=== PATIENT | male | born 1970 | race African-American/Black ===

== ENCOUNTER 2019-02-07 19:16 | Inpatient (IN) | payer OTHER ==
--- NOTE | 2019-02-07 21:28 | HP ---
CIWA Score Nausea/Vomitin Muscle Tremors: 4-Moderate,w/Arms Extend Anxiety: 4-Mod. Anxious/Guarded Agitation: 4-Moderately Restless Paroxysmal Sweats: No Perspiration Orientation: 3-Disoriented Date>2 days Tacttile Disturbances: 0-None Auditory Disturbances: 0-None Visual Disturbances: 0-None Headache: 0-None Present CIWA-Ar Total Score: 18 - Admission Criteria OASAS Guidelines: Admission for Medically Managed Detox: Requires at least one of the followin. CIWA greater than 12 2. Seizures within the past 24 hours 3. Delirium tremens within the past 24 hours 4. Hallucinations within the past 24 hours 5. Acute intervention needed for co occurring medical disorder 6. Acute intervention needed for co occurring psychiatric disorder 7. Severe withdrawal that cannot be handled at a lower level of care (continued vomiting, continued diarrhea, abnormal vital signs) requiring intravenous medication and/or fluids 8. Patient presents the following: CIWA greater than 12, Acute intervention needed for co-occurring med or psych disorder Admission Criteria Met: Admission criteria met Admission ROS [facility] Chief Complaint: c/o worsening withdrawal sx's. seeking detox txment Allergies/Adverse Reactions: Allergies Allergy/AdvReac Type Severity Reaction Status Date / Time haloperidol [From Haldol] Allergy Verified 02/07/19 20:13 tomato Allergy Verified 02/07/19 20:13 History of Present Illness: 48 Y.O. MALE WITH HX/O ALCOHOLISM HERE FOR DETOX . PRESENTS WITH C/O WORSENING WITHDRAWAL SX'S. CIWA 18. THIS IS CLIENTS FIRST ADMISSION HERE. DENIES HX/O SEIZURES, BLACKOUTS, SI/HI/AVH. REPORTS LAST DETOX "A WHILE AGO" DOES NOT REMEMBER. DENIES ANY SIGNIFICANT PERIOD OF CLEAN TIME. PMHX- RIGHT LEG "NERVE DAMAGE" PSYCH- DEPRESSION, BIPOLAR Exam Limitations: No Limitations - Ebola screening Have you traveled outside of the country in the last 21 days: No Have you had contact with anyone from an Ebola affected area: No Do you have a fever: No - Review of Systems Constitutional: Chills, Loss of Appetite, Malaise, Night Sweats, Changes in sleep, Unintentional Wgt. Loss EENT: reports: No Symptoms Reported Respiratory: reports: No Symptoms reported Cardiac: reports: No Symptoms Reported GI: reports: Diarrhea, Nausea, Poor Appetite, Poor Fluid Intake, Vomiting, Abdominal cramping : reports: No Symptoms Reported Musculoskeletal: reports: Back Pain Integumentary: reports: No Symptoms Reported Neuro: reports: Numbness (LEFT HAND) Endocrine: reports: No Symptoms Reported Hematology: reports: No Symptoms Reported Psychiatric: reports: Anxious Other Systems: Reviewed and Negative Patient History - Patient Medical History Hx Anemia: No Hx Asthma: No Hx Chronic Obstructive Pulmonary Disease (COPD): No Hx Cancer: No Hx Cardiac Disorders: No Hx Congestive Heart Failure: No Hx Hypertension: No Hx Hypercholesterolemia: No Hx Pacemaker: No HX Cerebrovascular Accident: No Hx Seizures: No Hx Dementia: No Hx Diabetes: No Hx Gastrointestinal Disorders: No Hx Liver Disease: No Hx Renal Disease (ESRD): No Hx Thyroid Disease: No Hx Human Immunodeficiency Virus (HIV): No Hx Hepatitis C: No Hx Depression: Yes Hx Suicide Attempt: No Hx Bipolar Disorder: Yes Hx Schizophrenia: No - Patient Surgical History Past Surgical History: Yes Hx Orthopedic Surgery: Yes Anesthesia Reaction: No - PPD History Previous Implant?: Yes Documented Results: Negative w/o proof Implanted On Prior [facility] Admission?: No PPD to be Administered?: Yes - Smoking Cessation Smoking history: Current every day smoker Have you smoked in the past 12 months: Yes Aproximately how many cigarettes per day: 20 Cigars Per Day: 0 Hx Chewing Tobacco Use: No Initiated information on smoking cessation: Yes 'Breaking Loose' booklet given: 02/07/19 - Substance & Tx. History Hx Alcohol Use: Yes Hx Substance Use: Yes Substance Use Type: Alcohol Hx Substance Use Treatment: Yes (DOES NOT RECALL) - Substances abused Alcohol Substance route: Oral Frequency: Daily Amount used: 2 1/2 PINT VODKA 6 PACK BEER Age of first use: 13 Date of last use: 02/07/19 Cocaine Substance route: Smoking Frequency: Daily Amount used: $200 Age of first use: 18 Date of last use: 02/07/19 Family Disease History - Family Disease History Family History: Unable to Obtain Admission Physical Exam BHS - Vital Signs Vital Signs: Vital Signs - 24 hr 02/07/19 20:10 Temperature 98.6 F Pulse Rate 79 Respiratory 18 Rate Blood Pressure 122/74 - Physical General Appearance: Yes: Moderate Distress, Tremorous, Irritable, Anxious, Other (RESTLESS) HEENTM: Yes: EOMI, Normocephalic, Normal Voice, ROMULO, Pharynx Normal Respiratory: Yes: Chest Non-Tender, Lungs Clear, Normal Breath Sounds, No Respiratory Distress, No Accessory Muscle Use Neck: Yes: No masses,lesions,Nodules, Supple, Trachea in good position Breast: Yes: Breast Exam Deferred Cardiology: Yes: Regular Rhythm, Regular Rate, S1, S2 Abdominal: Yes: Normal Bowel Sounds, Non Tender, Soft Genitourinary: Yes: Within Normal Limits (NO C/O) Back: Yes: Normal Inspection Musculoskeletal: Yes: Other (RLE WEAKNESS LUE WEAKNESS) Extremities: Yes: Normal Capillary Refill, Non-Tender, Tremors (FELT), Other ( RLE BRACE 2/2 TO WEAKNESS) Neurological: Yes: Alert, Motor Strength 5/5, Numbness (LUE), Disoriented (TO DATE), Depressed Affect Integumentary: Yes: Dry (FLAKY), Warm Lymphatic: Yes: Within Normal Limits - Diagnostic (1) Alcohol dependence with uncomplicated withdrawal Current Visit: Yes Status: Acute (2) Cocaine abuse, uncomplicated Current Visit: Yes Status: Acute (3) Nicotine dependence Current Visit: Yes Status: Chronic Qualifiers: Nicotine product type: cigarettes Substance use status: uncomplicated Qualified Code(s): F17.210 - Nicotine dependence, cigarettes, uncomplicated (4) Substance induced mood disorder Current Visit: Yes Status: Chronic (5) Weakness of right lower extremity Current Visit: Yes Status: Chronic (6) Braces as ambulation aid Current Visit: Yes Status: Chronic (7) Crutches as ambulation aid Current Visit: Yes Status: Chronic (8) Weakness of left upper extremity Current Visit: Yes Status: Chronic Cleared for Admission [facility] - Detox or Rehab [facility] Level of Care: Medically Managed Detox Regimen/Protocol: Librium Claeared for Rehab Admission: No Inpatient Rehab Admission - Rehab Decision to Admit Inpatient rehab admission?: No
[2019-02-07] MEDS ORDERED: ONDANSETRON *ODT* 4 MG TABLET SL PRN (21:33)
[2019-02-07] MEDS ORDERED: ACETAMINOPHEN 325 MG TABLET (FP) PO PRN ×2 (21:33)
[2019-02-07] MEDS ORDERED: hydrOXYzine PAMOATE 25 MG CAPSULE (FP) PO PRN (21:33)
[2019-02-07] MEDS ORDERED: DICYCLOMINE HCL 10 MG CAPSULE PO PRN (21:33)
[2019-02-07] MEDS ORDERED: chlordiazePOXIDE HCL 25 MG CAPSULE PO PRN (21:33)
[2019-02-07] MEDS ORDERED: MAGNESIUM HYDROX 2400MG/30ML ORAL SUSPENSION 30 ML CUP PO PRN (21:33)
[2019-02-07] MEDS ORDERED: NICOTINE POLACRILEX 2 MG GUM BUC PRN (21:33)
[2019-02-07] MEDS ORDERED: MENTHOL/PHENOL 1 EACH UD MM PRN (21:33)
[2019-02-07] MEDS ORDERED: P-EPHED 60MG/TRIPROLIDI 2.5MG TABLET PO PRN (21:33)
[2019-02-07] MEDS ORDERED: guaiFENesin 200 MG/10 ML 10 ML UNIT-DOSE CUPS PO PRN (21:33)
[2019-02-07] MEDS ORDERED: MAGNESIUM CITRATE 300 ML BOTTLE PO PRN (21:33)
[2019-02-07] MEDS ORDERED: BACLOFEN 10 MG TABLET (FP) PO PRN (21:33)
[2019-02-07] MEDS ORDERED: BISMUTH SUBSALICYLATE 524 MG/30 ML UD PO PRN (21:33)
[2019-02-07] MEDS ORDERED: MAG HYDROX/AL HYDROX/SIMETH 30 ML UNIT-DOSE CUP PO PRN (21:33)
[2019-02-07] MEDS ORDERED: METHOCARBAMOL 500 MG TABLET PO PRN (21:33)
[2019-02-07] MEDS ORDERED: MELATONIN 5 MG TABLETS PO PRN (21:33)
[2019-02-07] MEDS ORDERED: IBUPROFEN 400 MG TABLET (FP) PO PRN (21:33)
[2019-02-08] MEDS: chlordiazePOXIDE HCL 25 MG CAPSULE PO SCH ×5 (00:18→22:35)
[2019-02-08] MEDS: THIAMINE HCL 100 MG TABLET (FP) PO SCH ×2 (01:18→22:35)
--- NOTE | 2019-02-08 10:08 | EKG ---
Test Reason : Blood Pressure : / mmHG Vent. Rate : 078 BPM Atrial Rate : 078 BPM P-R Int : 128 ms QRS Dur : 104 ms QT Int : 404 ms P-R-T Axes : 076 -53 023 degrees QTc Int : 460 ms NORMAL SINUS RHYTHM LEFT ANTERIOR FASCICULAR BLOCK MINIMAL VOLTAGE CRITERIA FOR LVH, MAY BE NORMAL VARIANT ABNORMAL ECG NO PREVIOUS ECGS AVAILABLE Confirmed by LISA CABRERA, KEILY ([id number]) on 02/08/2019 10:08:27 AM Referred By: MARICHUY KIM Confirmed By:KEILY GONZALEZ MD
[2019-02-08] MEDS: PRENATAL VITAMINS W/ FOLIC ACID TABLET (FP) PO SCH (10:48)
[2019-02-08] MEDS: NICOTINE 21 MG/24 HOURS TOPICAL PATCH TD SCH (10:51)
[2019-02-08 12:27] LABS: HEMATOCRIT 40.7 % (35.4-49); HEMOGLOBIN 13.5 GM/dL (11.7-16.9); MCH 29.8 pg (25.7-33.7); MCHC 33.1 g/dl (32.0-35.9); MEAN CELL VOLUME 90.1 fl (80-96); MEAN PLT VOLUME 7.7 fl (7.5-11.1); PLATELET COUNT 253 K/MM3 (134-434); RBC 4.52 M/mm3 (4.00-5.60); RDW 14.1 % (11.9-15.9); WHITE BLOOD COUNT 3.9 K/mm3 (4.0-10.0)
[2019-02-08 12:29] LABS: ALK PHOS 52 U/L (45-117); ANION GAP 6 MMOL/L (8-16); BILIRUBIN,TOTAL 0.3 mg/dL (0.2-1); BLOOD UREA NITROGEN 11 mg/dL (7-18); CALCIUM 7.9 mg/dL (8.5-10.1); CHLORIDE 110 mmol/L (98-107); CO2 28 mmol/L (21-32); CREATININE 0.8 mg/dL (0.55-1.3); GLUCOSE,RANDOM 126 mg/dL (74-106); POTASSIUM 3.8 mmol/L (3.5-5.1); SGOT/AST 12 U/L (15-37); SGPT/ALT 20 U/L (13-61); SODIUM 144 mmol/L (136-145); TOT PROT 5.8 g/dl (6.4-8.2)
--- NOTE | 2019-02-08 16:55 | PN ---
S CIWA - CIWA Score Nausea/Vomitin Muscle Tremors: 3 Anxiety: 3 Agitation: 0-Normal Activity Paroxysmal Sweats: No Perspiration Orientation: 0-Oriented Tacttile Disturbances: 0-None Auditory Disturbances: 2-Mild Harshness/Frighten Visual Disturbances: 2-Mild Sensitivity Headache: 0-None Present CIWA-Ar Total Score: 13 BHS Progress Note (SOAP) Subjective: Anxious, Body Aches, Interrupted Sleep, Diarrhea, Vomiting. Objective: PATIENT A & O X 3. IN NO ACUTE DISTRESS. 02/08/19 16:53 Vital Signs Temperature 98.6 F 02/08/19 14:23 Pulse Rate 72 02/08/19 14:23 Respiratory Rate 18 02/08/19 14:23 Blood Pressure 134/74 02/08/19 14:23 O2 Sat by Pulse Oximetry (%) Laboratory Tests 02/08/19 02/08/19 07:00 07:00 WBC 3.9 L RBC 4.52 Hgb 13.5 Hct 40.7 MCV 90.1 MCH 29.8 MCHC 33.1 RDW 14.1 Plt Count 253 MPV 7.7 Sodium 144 Potassium 3.8 Chloride 110 H Carbon Dioxide 28 Anion Gap 6 L BUN 11 Creatinine 0.8 Creat Clearance w eGFR 103.18 Random Glucose 126 H Calcium 7.9 L Total Bilirubin 0.3 AST 12 L ALT 20 Alkaline Phosphatase 52 Total Protein 5.8 L Albumin 3.0 L LABS NOTED. Assessment: 02/08/19 16:53 WITHDRAWAL SYMPTOMS. HYPOCALCEMIA. 02/08/19 16:54 Plan: CONTINUE DETOX. INCREASE DAILY PO FLUID INTAKE. OSCAL, 500 MG PO BID FOR HYPOCALCEMIA.
--- NOTE | 2019-02-08 18:54 | CONSULT ---
[facility] Psychiatric Consult - Data Date of interview: 02/08/19 Admission source: [facility] Identifying data: Approached at bedside, earlier during the day, for the psychiatric evaluation. Mr Rand declined.
[2019-02-08] MEDS: CALCIUM 500MG/VIT-D 200 UNITS COMBO TABLET (FP) PO SCH (22:35)
[2019-02-09] MEDS: chlordiazePOXIDE HCL 25 MG CAPSULE PO SCH ×3 (06:20→18:32)
[2019-02-09] MEDS: CALCIUM 500MG/VIT-D 200 UNITS COMBO TABLET (FP) PO SCH ×2 (10:41→22:50)
[2019-02-09] MEDS: PRENATAL VITAMINS W/ FOLIC ACID TABLET (FP) PO SCH (10:41)
[2019-02-09] MEDS: NICOTINE 21 MG/24 HOURS TOPICAL PATCH TD SCH (10:47)
--- NOTE | 2019-02-09 16:09 | PN ---
S CIWA - CIWA Score Nausea/Vomitin Muscle Tremors: None Anxiety: 4-Mod. Anxious/Guarded Agitation: 0-Normal Activity Paroxysmal Sweats: No Perspiration Orientation: 0-Oriented Tacttile Disturbances: 2-Mild Itch/Numbness/Burn Auditory Disturbances: 1-Very Mild Visual Disturbances: 2-Mild Sensitivity Headache: 0-None Present CIWA-Ar Total Score: 11 BHS Progress Note (SOAP) Subjective: Anxious, Body Aches, Nausea, Interrupted Sleep, Diarrhea. Objective: PATIENT A & O X 3, OBSERVED AMBULATING ON UNIT. IN NO ACUTE DISTRESS. 02/09/19 16:08 Vital Signs Temperature 96.4 F L 02/09/19 14:12 Pulse Rate 93 H 02/09/19 14:12 Respiratory Rate 20 02/09/19 14:12 Blood Pressure 109/67 02/09/19 14:12 O2 Sat by Pulse Oximetry (%) Laboratory Tests 02/08/19 02/08/19 02/08/19 07:00 07:00 07:00 WBC 3.9 L RBC 4.52 Hgb 13.5 Hct 40.7 MCV 90.1 MCH 29.8 MCHC 33.1 RDW 14.1 Plt Count 253 MPV 7.7 Sodium 144 Potassium 3.8 Chloride 110 H Carbon Dioxide 28 Anion Gap 6 L BUN 11 Creatinine 0.8 Creat Clearance w eGFR 103.18 Random Glucose 126 H Calcium 7.9 L Total Bilirubin 0.3 AST 12 L ALT 20 Alkaline Phosphatase 52 Total Protein 5.8 L Albumin 3.0 L RPR Titer Nonreactive LABS NOTED. Assessment: 02/09/19 16:09 WITHDRAWAL SYMPTOMS. Plan: CONTINUE DETOX. INCREASE DAILY PO FLUID INTAKE. PRN PEPTO-BISMOL PO FOR DIARRHEA. PRN ZOFRAN SL FOR NAUSEA.
[2019-02-09] MEDS: chlordiazePOXIDE HCL 10 MG CAPSULE PO SCH (22:50)
[2019-02-09] MEDS: THIAMINE HCL 100 MG TABLET (FP) PO SCH (22:50)
[2019-02-09] MEDS ORDERED: chlordiazePOXIDE HCL 10 MG CAPSULE PO PRN (23:00)
[2019-02-10] MEDS: chlordiazePOXIDE HCL 10 MG CAPSULE PO SCH ×2 (06:41→10:23)
[2019-02-10 09:19] VITALS: BP 93/58; PULSE 71; TEMP 96.9
[2019-02-10] MEDS: CALCIUM 500MG/VIT-D 200 UNITS COMBO TABLET (FP) PO SCH (10:20)
[2019-02-10] MEDS: PRENATAL VITAMINS W/ FOLIC ACID TABLET (FP) PO SCH (10:20)
[2019-02-10] MEDS: NICOTINE 21 MG/24 HOURS TOPICAL PATCH TD SCH (10:24)
--- NOTE | 2019-02-10 18:29 | PN ---
BHS Progress Note (SOAP) Subjective: Patient Reports That Current Withdrawal Symptoms are Minimal and That He feels Well Overall. Objective: PATIENT A & O X 3, OBSERVED AMBULATING ON UNIT. IN NO ACUTE DISTRESS. 02/10/19 18:26 Vital Signs Temperature 96.9 F L 02/10/19 09:18 Pulse Rate 71 02/10/19 09:18 Respiratory Rate 18 02/10/19 09:18 Blood Pressure 93/58 L 02/10/19 09:18 O2 Sat by Pulse Oximetry (%) Laboratory Tests 02/08/19 02/08/19 02/08/19 07:00 07:00 07:00 WBC 3.9 L RBC 4.52 Hgb 13.5 Hct 40.7 MCV 90.1 MCH 29.8 MCHC 33.1 RDW 14.1 Plt Count 253 MPV 7.7 Sodium 144 Potassium 3.8 Chloride 110 H Carbon Dioxide 28 Anion Gap 6 L BUN 11 Creatinine 0.8 Creat Clearance w eGFR 103.18 Random Glucose 126 H Calcium 7.9 L Total Bilirubin 0.3 AST 12 L ALT 20 Alkaline Phosphatase 52 Total Protein 5.8 L Albumin 3.0 L RPR Titer Nonreactive LABS NOTED. Assessment: 02/10/19 18:27 COMPLETION OF DETOX REGIMEN. 02/10/19 18:28 Plan: SINCE PATIENT REPORTS THAT CURRENT WITHDRAWAL / DETOX SYMPTOMS ARE MINIMAL IN DEGREE AND THAT HE FEELS WELL OVERALL, AT PATIENT'S REQUEST, HE WAS GRANTED AN EARLY DISCHARGE FROM DETOX UNIT TODAY SO THAT HE MAY PROCEED ON TO AFTERCARE PLAN - [facility] ([place], [place]).
--- NOTE | 2019-02-10 18:32 | DS ---
[facility] Detox Discharge Summary Admission Date: 02/07/19 Discharge Date: 02/10/19 - History Present History: Alcohol Dependence, Cocaine Dependence Additional Comments: PATIENT REPORTS THAT CURRENT WITHDRAWAL / DETOX SYMPTOMS MINIMAL IN DEGREE AT THIS TIME AND HE REPORTS THAT HE FEELS WELL OVERALL AT TIME OF DISCHARGE FROM DETOX UNIT. PATIENT GOING TO [facility] ([place], [place]) FOR AFTERCARE. PATIENT WAS DISCHARGED FROM DETOX UNIT IN STABLE MEDICAL CONDITION. Pertinent Past History: History of Nerve Damage To Right Leg, Depression, Hypocalcemia, Bipolar Disorder , Nicotine Dependence, History of Weakness Of Right Lower Extremity, Use of Braces and Crutches As Ambulatory Aids, History Of Weakness Of right Upper Extremity. - Physical Exam Results Vital Signs: Vital Signs Temperature 96.9 F L 02/10/19 09:18 Pulse Rate 71 02/10/19 09:18 Respiratory Rate 18 02/10/19 09:18 Blood Pressure 93/58 L 02/10/19 09:18 O2 Sat by Pulse Oximetry (%) Pertinent Admission Physical Exam Findings: WITHDRAWAL SYMPTOMS. Laboratory Tests 02/08/19 02/08/19 02/08/19 07:00 07:00 07:00 WBC 3.9 L RBC 4.52 Hgb 13.5 Hct 40.7 MCV 90.1 MCH 29.8 MCHC 33.1 RDW 14.1 Plt Count 253 MPV 7.7 Sodium 144 Potassium 3.8 Chloride 110 H Carbon Dioxide 28 Anion Gap 6 L BUN 11 Creatinine 0.8 Creat Clearance w eGFR 103.18 Random Glucose 126 H Calcium 7.9 L Total Bilirubin 0.3 AST 12 L ALT 20 Alkaline Phosphatase 52 Total Protein 5.8 L Albumin 3.0 L RPR Titer Nonreactive LABS NOTED. - Treatment Hospital Course: Detox Protocol Followed, Detoxed Safely, Responded well, Discharged Condition Good, Rehab Referral Accepted Patient has Accepted a Rehab Referral to: [facility] ([place], [place]). - Medication Discharge Medications: Ambulatory Orders Fluphenazine HCl [Prolixin -] 5 mg PO BID 02/07/19 Quetiapine Fumarate [Seroquel] 100 mg PO HS 02/07/19 - Diagnosis (1) Alcohol dependence with uncomplicated withdrawal Status: Acute (2) Cocaine abuse, uncomplicated Status: Acute (3) Hypocalcemia Status: Acute (4) Braces as ambulation aid Status: Chronic (5) Crutches as ambulation aid Status: Chronic (6) Nicotine dependence Status: Chronic Qualifiers: Nicotine product type: cigarettes Substance use status: uncomplicated Qualified Code(s): F17.210 - Nicotine dependence, cigarettes, uncomplicated (7) Substance induced mood disorder Status: Chronic (8) Weakness of left upper extremity Status: Chronic (9) Weakness of right lower extremity Status: Chronic - AMA Did Patient Leave Against Medical Advice: No
[2019-02-10] MEDS ORDERED: chlordiazePOXIDE HCL 10 MG CAPSULE PO SCH (23:00)
== END 2019-02-10 11:45 | disposition other institution (70) | DRG 774 ==
LOC: YASAS 19:16 → Y3N 23:16
PROVIDERS: ADMIT Surgery; ATTEND Surgery
PROC: HZ2ZZZZ Detoxification Services for Substance Abuse Treatment (ICD-10-PCS; principal; 2019-02-07)
DX: F10.230 Alcohol dependence with withdrawal, uncomplicated (principal); F14.20 Cocaine dependence, uncomplicated; F17.210 Nicotine dependence, cigarettes, uncomplicated; F19.24 Other psychoactive substance dependence with psychoactive substance-induced mood disorder; E83.51 Hypocalcemia; R29.898 Other symptoms and signs involving the musculoskeletal system; Z97.8 Presence of other specified devices; Z91.19 Patient's noncompliance with other medical treatment and regimen
CPT/HCPCS: 36415; 80053; 85027; 86593; 93005; 93010; Q0162

== ENCOUNTER 2019-04-14 14:08 | Inpatient (IN) | payer OTHER ==
[2019-04-14 19:15] VITALS: BMI 26.1
--- NOTE | 2019-04-14 20:43 | HP ---
CIWA Score Nausea/Vomitin-Mild Nausea/No Vomiting Muscle Tremors: None Anxiety: 4-Mod. Anxious/Guarded Agitation: 4-Moderately Restless Paroxysmal Sweats: No Perspiration Orientation: 2-Disoriented Date<2 days Tacttile Disturbances: 0-None Auditory Disturbances: 0-None Visual Disturbances: 0-None Headache: 1-Very Mild CIWA-Ar Total Score: 12 - Admission Criteria OASAS Guidelines: Admission for Medically Managed Detox: Requires at least one of the followin. CIWA greater than 12 2. Seizures within the past 24 hours 3. Delirium tremens within the past 24 hours 4. Hallucinations within the past 24 hours 5. Acute intervention needed for co occurring medical disorder 6. Acute intervention needed for co occurring psychiatric disorder 7. Severe withdrawal that cannot be handled at a lower level of care (continued vomiting, continued diarrhea, abnormal vital signs) requiring intravenous medication and/or fluids 8. Patient presents the following: CIWA greater than 12 Admission Criteria Met: Admission criteria met Admission ROS [facility] Chief Complaint: SEEKING DETOX FOR C/O OF WITHDRAWAL SX'S. Allergies/Adverse Reactions: Allergies Allergy/AdvReac Type Severity Reaction Status Date / Time haloperidol [From Haldol] Allergy Verified 02/07/19 20:13 mayonnaise Allergy Hives Verified 04/14/19 18:58 tomato Allergy Verified 02/07/19 20:13 History of Present Illness: 49 Y.O. MALE WITH HX/O ALCOHOLISM HERE FOR DETOX . PRESENTS WITH C/O WORSENING WITHDRAWAL SX'S. CIWA 12. THIS IS CLIENTS 2ND ADMISSION HERE. DENIES HX/O SEIZURES, SI/HI/AVH, +BLACKOUTS. REPORTS LONGEST CLEAN TIME PAST 60 DAYS. DOMICILED, DISABLED. DENIES LEGALS PMHX- RIGHT LEG "NERVE DAMAGE" PSYCH- DEPRESSION, BIPOLAR Exam Limitations: Physical Impairment (RLE NERVE DAMAGE AMBULATES WITH CRUTCHES ) - Ebola screening Have you traveled outside of the country in the last 21 days: No (N) Have you had contact with anyone from an Ebola affected area: No Do you have a fever: No - Review of Systems Constitutional: Night Sweats, Changes in sleep EENT: reports: Nose Congestion Respiratory: reports: No Symptoms reported Cardiac: reports: No Symptoms Reported GI: reports: Nausea, Poor Fluid Intake : reports: Urgency Musculoskeletal: reports: Joint Pain, Other (LLE WEAKNESS) Integumentary: reports: No Symptoms Reported Neuro: reports: No Symptoms reported Endocrine: reports: No Symptoms Reported Hematology: reports: No Symptoms Reported Psychiatric: reports: Orientated x3, Agitated (IRRITABLE), Anxious Other Systems: Reviewed and Negative Patient History - Patient Medical History Hx Anemia: No Hx Asthma: No Hx Chronic Obstructive Pulmonary Disease (COPD): No Hx Cancer: No Hx Cardiac Disorders: No Hx Congestive Heart Failure: No Hx Hypertension: No Hx Hypercholesterolemia: No Hx Pacemaker: No HX Cerebrovascular Accident: No Hx Seizures: No Hx Dementia: No Hx Diabetes: No Hx Gastrointestinal Disorders: No Hx Liver Disease: No Hx Genitourinary Disorders: No Hx Sexually Transmitted Disorders: No Hx Renal Disease (ESRD): No Hx Thyroid Disease: No Hx Human Immunodeficiency Virus (HIV): No Hx Hepatitis C: No Hx Depression: Yes Hx Suicide Attempt: No Hx Bipolar Disorder: Yes Hx Schizophrenia: Yes Other Medical History: RLE "NERVE DAMAGE" - Patient Surgical History Past Surgical History: Yes Hx Neurologic Surgery: No Hx Cataract Extraction: No Hx Cardiac Surgery: No Hx Lung Surgery: No Hx Breast Surgery: No Hx Breast Biopsy: No Hx Abdominal Surgery: No Hx Appendectomy: No Hx Cholecystectomy: No Hx Genitourinary Surgery: No Hx Section: No Hx Orthopedic Surgery: Yes Anesthesia Reaction: No - PPD History Previous Implant?: Yes Documented Results: Negative w/proof Implanted On Prior [facility] Admission?: Yes Date: 02/11/19 Results: 0MM PPD to be Administered?: No - Smoking Cessation Smoking history: Current every day smoker Have you smoked in the past 12 months: Yes Aproximately how many cigarettes per day: 3 Cigars Per Day: 0 Hx Chewing Tobacco Use: No Initiated information on smoking cessation: Yes 'Breaking Loose' booklet given: 04/14/19 - Substance & Tx. History Hx Alcohol Use: Yes Hx Substance Use: Yes Substance Use Type: Alcohol, Cocaine Hx Substance Use Treatment: Yes ([facility]) - Substances abused Alcohol Substance route: Oral Frequency: Daily Amount used: 2 1/2 PINT VODKA 6 PACK BEER Age of first use: 13 Date of last use: 04/14/19 Cocaine Substance route: Smoking Frequency: Daily Amount used: $200 Age of first use: 18 Date of last use: 04/14/19 PCP Substance route: Smoking Frequency: Daily Amount used: 2 of 20 dollars Age of first use: 14 Date of last use: 04/14/19 Marijuana/Hashish Substance route: Smoking Frequency: Daily Amount used: 2 bags Age of first use: 49 Date of last use: 04/14/19 Family Disease History - Family Disease History Family Disease History: Other: Mother (ALCOHOLISM), Brother (ALCOHOLISM) Admission Physical Exam [facility] - Vital Signs Vital Signs: Vital Signs - 24 hr 04/14/19 18:56 Temperature 98.6 F Pulse Rate 106 H Respiratory 16 Rate Blood Pressure 130/78 - Physical General Appearance: Yes: Mild Distress, Anxious HEENTM: Yes: EOMI, Normocephalic, Normal Voice, ROMULO, Pharynx Normal, Nasal Congestion Respiratory: Yes: Chest Non-Tender, Lungs Clear, Normal Breath Sounds, No Respiratory Distress, No Accessory Muscle Use Neck: Yes: No masses,lesions,Nodules, Supple, Trachea in good position Breast: Yes: Breast Exam Deferred Cardiology: Yes: Regular Rhythm, S1, S2, Tachycardia Abdominal: Yes: Non Tender, Soft, Increased Bowel Sounds, Protuberent Genitourinary: Yes: Uregency (c/o) Back: Yes: Within Normal Limits Musculoskeletal: Yes: full range of Motion Extremities: Yes: Normal Capillary Refill, Normal Range of Motion (DECREASE ROM TO RLE), Non-Tender Neurological: Yes: Fully Oriented, Alert, Motor Strength 5/5 (rle weakness), Depressed Affect Integumentary: Yes: Dry, Warm Lymphatic: Yes: Within Normal Limits - Diagnostic (1) Alcohol dependence with uncomplicated withdrawal Current Visit: Yes Status: Acute (2) Cocaine abuse, uncomplicated Current Visit: Yes Status: Acute (3) Braces as ambulation aid Current Visit: Yes Status: Chronic (4) Crutches as ambulation aid Current Visit: Yes Status: Chronic (5) Nicotine dependence Current Visit: Yes Status: Chronic Qualifiers: Nicotine product type: cigarettes Substance use status: uncomplicated Qualified Code(s): F17.210 - Nicotine dependence, cigarettes, uncomplicated (6) Substance induced mood disorder Current Visit: Yes Status: Suspected (7) Weakness of right lower extremity Current Visit: Yes Status: Chronic Cleared for Admission [facility] - Detox or Rehab [facility] Level of Care: Medically Managed Detox Regimen/Protocol: Librium Claeared for Rehab Admission: No Breathalyzer - Breathalyzer Breathalyzer: 0.090 Urine Drug Screen - Test Device Lot number: [id number] Expiration date: 01/05/21 - Control Is test valid?: Yes - Results Drug screen NEGATIVE: No Urine drug screen results: CHOLO-Cocaine Inpatient Rehab Admission - Rehab Decision to Admit Inpatient rehab admission?: No
[2019-04-14] MEDS ORDERED: BISMUTH SUBSALICYLATE 524 MG/30 ML UD PO PRN (20:47)
[2019-04-14] MEDS ORDERED: ONDANSETRON *ODT* 4 MG TABLET SL PRN (20:47)
[2019-04-14] MEDS ORDERED: MELATONIN 5 MG TABLETS PO PRN (20:47)
[2019-04-14] MEDS ORDERED: P-EPHED 60MG/TRIPROLIDI 2.5MG TABLET PO PRN (20:47)
[2019-04-14] MEDS ORDERED: DICYCLOMINE HCL 10 MG CAPSULE PO PRN (20:47)
[2019-04-14] MEDS ORDERED: guaiFENesin 200 MG/10 ML 10 ML UNIT-DOSE CUPS PO PRN (20:47)
[2019-04-14] MEDS ORDERED: ACETAMINOPHEN 325 MG TABLET (FP) PO PRN ×2 (20:47)
[2019-04-14] MEDS ORDERED: NICOTINE POLACRILEX 2 MG GUM BUC PRN (20:47)
[2019-04-14] MEDS ORDERED: METHOCARBAMOL 500 MG TABLET PO PRN (20:47)
[2019-04-14] MEDS ORDERED: MAGNESIUM HYDROX 2400MG/30ML ORAL SUSPENSION 30 ML CUP PO PRN (20:47)
[2019-04-14] MEDS ORDERED: MAG HYDROX/AL HYDROX/SIMETH 30 ML UNIT-DOSE CUP PO PRN (20:47)
[2019-04-14] MEDS ORDERED: MAGNESIUM CITRATE 300 ML BOTTLE PO PRN (20:47)
[2019-04-14] MEDS ORDERED: MENTHOL/PHENOL 1 EACH UD MM PRN (20:47)
[2019-04-14] MEDS ORDERED: hydrOXYzine PAMOATE 25 MG CAPSULE (FP) PO PRN (20:47)
[2019-04-14] MEDS ORDERED: IBUPROFEN 400 MG TABLET (FP) PO PRN (20:47)
[2019-04-14] MEDS ORDERED: chlordiazePOXIDE HCL 25 MG CAPSULE PO PRN (20:47)
[2019-04-14] MEDS: THIAMINE HCL 100 MG TABLET (FP) PO SCH (22:27)
[2019-04-14] MEDS: chlordiazePOXIDE HCL 25 MG CAPSULE PO SCH (22:27)
[2019-04-15] MEDS: chlordiazePOXIDE HCL 25 MG CAPSULE PO SCH ×4 (07:03→22:21)
--- NOTE | 2019-04-15 10:07 | PN ---
S CIWA - CIWA Score Nausea/Vomitin-No Nausea/No Vomiting Muscle Tremors: 2 Anxiety: 2 Agitation: 2 Paroxysmal Sweats: 3 Orientation: 0-Oriented Tacttile Disturbances: 0-None Auditory Disturbances: 0-None Visual Disturbances: 0-None Headache: 1-Very Mild CIWA-Ar Total Score: 10 S Progress Note (SOAP) Subjective: c/o sweats, mild headache, anxiety, and mild shakes. Objective: 04/15/19 10:06 Vital Signs 04/15/19 04/15/19 04/15/19 03:30 06:07 09:25 Temperature 97.5 F L 97.4 F L Pulse Rate 93 H 93 H Respiratory 18 18 20 Rate Blood Pressure 111/67 106/57 L Labs pending. Assessment: 04/15/19 10:07 AOX3, in no respiratory distress, full rom, ambulating in the unit. Withdrawal symptoms. Plan: continue detox increase fluids.
[2019-04-15] MEDS: NICOTINE 14 MG/24 HOURS TOPICAL PATCH TD SCH (10:41)
[2019-04-15] MEDS: PRENATAL VITAMINS W/ FOLIC ACID TABLET (FP) PO SCH (10:42)
[2019-04-15 11:49] LABS: PH,URINE 6.5 (5.0-8.0); URINE APPEARANCE CLEAR; URINE BILIRUBIN NEGATIVE (NEGATIVE); URINE COLOR YELLOW; URINE GLUCOSE (UA) NEGATIVE (NEGATIVE); URINE KETONE NEGATIVE (NEGATIVE); URINE LEUK ESTERASE NEGATIVE (NEGATIVE); URINE NITRITE NEGATIVE (NEGATIVE); URINE PROTEIN NEGATIVE (NEGATIVE); URINE UROBILINOGEN 0.2 mg/dL (0.2-1.0)
--- NOTE | 2019-04-15 12:46 | CONSULT ---
[facility] Psychiatric Consult - Data Date of interview: 04/15/19 Admission source: [facility] Identifying data: THREE visits at bedside. Patient was approached by this marine underwriter for psychiatric evaluation (as requested by the medical team). Mr Rand steadfastly refused. Nursing staff is made aware.
[2019-04-15] MEDS: THIAMINE HCL 100 MG TABLET (FP) PO SCH (22:21)
[2019-04-16] MEDS: chlordiazePOXIDE HCL 25 MG CAPSULE PO SCH ×3 (06:15→17:02)
[2019-04-16] MEDS: NICOTINE 14 MG/24 HOURS TOPICAL PATCH TD SCH (11:02)
[2019-04-16] MEDS: PRENATAL VITAMINS W/ FOLIC ACID TABLET (FP) PO SCH (11:02)
--- NOTE | 2019-04-16 11:31 | PN ---
[facility] CIWA - CIWA Score Nausea/Vomitin-No Nausea/No Vomiting Muscle Tremors: 2 Anxiety: 2 Agitation: 2 Paroxysmal Sweats: 1-Minimal Palms Moist Orientation: 0-Oriented Tacttile Disturbances: 0-None Auditory Disturbances: 0-None Visual Disturbances: 0-None Headache: 0-None Present CIWA-Ar Total Score: 7 BHS Progress Note (SOAP) Subjective: feeling little better today mild tremor tolerate food and fluid well preferring to stay in bed today Objective: 04/16/19 11:31 Vital Signs Temperature 97.5 F L 04/16/19 09:11 Pulse Rate 69 04/16/19 09:11 Respiratory Rate 18 04/16/19 09:11 Blood Pressure 92/57 L 04/16/19 09:11 O2 Sat by Pulse Oximetry (%) Laboratory Last Values Urine Color Yellow 04/15/19 09:00 Urine Appearance Clear 04/15/19 09:00 Urine pH 6.5 (5.0-8.0) 04/15/19 09:00 Ur Specific [place] 1.015 (1.010-1.035) 04/15/19 09:00 Urine Protein Negative (NEGATIVE) 04/15/19 09:00 Urine Glucose (UA) Negative (NEGATIVE) 04/15/19 09:00 Urine Ketones Negative (NEGATIVE) 04/15/19 09:00 Urine Blood Negative (NEGATIVE) 04/15/19 09:00 Urine Nitrite Negative (NEGATIVE) 04/15/19 09:00 Urine Bilirubin Negative (NEGATIVE) 04/15/19 09:00 Urine Urobilinogen 0.2 mg/dL (0.2-1.0) 04/15/19 09:00 Ur Leukocyte Esterase Negative (NEGATIVE) 04/15/19 09:00 04/16/19 11:31 lab see 02/2019 Assessment: 04/16/19 11:31 alcohol withdrawal sx Plan: continue detox
[2019-04-16] MEDS: chlordiazePOXIDE HCL 10 MG CAPSULE PO SCH (22:11)
[2019-04-16] MEDS: THIAMINE HCL 100 MG TABLET (FP) PO SCH (22:11)
[2019-04-16] MEDS ORDERED: chlordiazePOXIDE HCL 10 MG CAPSULE PO PRN (23:00)
[2019-04-17] MEDS: chlordiazePOXIDE HCL 10 MG CAPSULE PO SCH ×2 (06:53→10:39)
[2019-04-17 09:03] VITALS: PULSE 72
[2019-04-17] MEDS: PRENATAL VITAMINS W/ FOLIC ACID TABLET (FP) PO SCH (10:39)
[2019-04-17] MEDS: NICOTINE 14 MG/24 HOURS TOPICAL PATCH TD SCH (10:39)
--- NOTE | 2019-04-17 11:46 | PN ---
S CIWA - CIWA Score Nausea/Vomitin-Mild Nausea/No Vomiting Muscle Tremors: 2 Anxiety: 1-Mildly Anxious Agitation: 1-Slight > Activity Paroxysmal Sweats: No Perspiration Orientation: 0-Oriented Tacttile Disturbances: 0-None Auditory Disturbances: 0-None Visual Disturbances: 0-None Headache: 0-None Present CIWA-Ar Total Score: 5 BHS Progress Note (SOAP) Subjective: feeling better today ambulating with crutches due to right leg "nerve damaged" less tremor sleep better at night Objective: 04/17/19 11:45 Vital Signs Temperature 96 F L 04/17/19 09:02 Pulse Rate 72 04/17/19 09:02 Respiratory Rate 20 04/17/19 09:02 Blood Pressure 91/54 L 04/17/19 09:02 O2 Sat by Pulse Oximetry (%) Laboratory Last Values Urine Color Yellow 04/15/19 09:00 Urine Appearance Clear 04/15/19 09:00 Urine pH 6.5 (5.0-8.0) 04/15/19 09:00 Ur Specific [place] 1.015 (1.010-1.035) 04/15/19 09:00 Urine Protein Negative (NEGATIVE) 04/15/19 09:00 Urine Glucose (UA) Negative (NEGATIVE) 04/15/19 09:00 Urine Ketones Negative (NEGATIVE) 04/15/19 09:00 Urine Blood Negative (NEGATIVE) 04/15/19 09:00 Urine Nitrite Negative (NEGATIVE) 04/15/19 09:00 Urine Bilirubin Negative (NEGATIVE) 04/15/19 09:00 Urine Urobilinogen 0.2 mg/dL (0.2-1.0) 04/15/19 09:00 Ur Leukocyte Esterase Negative (NEGATIVE) 04/15/19 09:00 lab noted 04/17/19 11:46 see 02/2019 lab report 04/17/19 11:46 Assessment: 04/17/19 11:46 withdrawal sx Plan: continue detox
[2019-04-17 13:08] VITALS: BP 102/60; TEMP 96.9
--- NOTE | 2019-04-17 16:55 | DS ---
[facility] Detox Discharge Summary Admission Date: 04/14/19 Discharge Date: 04/17/19 - History Present History: Alcohol Dependence, Cocaine Dependence Additional Comments: Patient admitted w/ alcohol withdrawal symptoms. - Physical Exam Results Vital Signs: Vital Signs Temperature 96.9 F L 04/17/19 13:08 Pulse Rate 72 04/17/19 13:08 Respiratory Rate 18 04/17/19 13:08 Blood Pressure 102/60 04/17/19 13:08 O2 Sat by Pulse Oximetry (%) Pertinent Admission Physical Exam Findings: 49 Y.O. MALE WITH HX/O ALCOHOLISM PRESENTS WITH WITHDRAWAL SYMPTOMS AND REQUESTING DETOX . DENIES HX/O SEIZURES, SI/HI/AVH, +BLACKOUTS. PMHX- RIGHT LEG "NERVE DAMAGE" PSYCH- DEPRESSION, BIPOLAR Laboratory Last Values Urine Color Yellow 04/15/19 09:00 Urine Appearance Clear 04/15/19 09:00 Urine pH 6.5 (5.0-8.0) 04/15/19 09:00 Ur Specific [place] 1.015 (1.010-1.035) 04/15/19 09:00 Urine Protein Negative (NEGATIVE) 04/15/19 09:00 Urine Glucose (UA) Negative (NEGATIVE) 04/15/19 09:00 Urine Ketones Negative (NEGATIVE) 04/15/19 09:00 Urine Blood Negative (NEGATIVE) 04/15/19 09:00 Urine Nitrite Negative (NEGATIVE) 04/15/19 09:00 Urine Bilirubin Negative (NEGATIVE) 04/15/19 09:00 Urine Urobilinogen 0.2 mg/dL (0.2-1.0) 04/15/19 09:00 Ur Leukocyte Esterase Negative (NEGATIVE) 04/15/19 09:00 Labs reviewed. - Treatment Hospital Course: Detox Protocol Followed, Detoxed Safely, Responded well, Discharged Condition Good, Rehab Referral Accepted (Patient being discahrged for admission to [facility]) - Medication Discharge Medications: Ambulatory Orders Quetiapine Fumarate [Seroquel] 100 mg PO HS 02/07/19 Prolixin Decanoate (Long-Acting Injection) - 25 mg IM WEEKLY 04/14/19 - Diagnosis (1) Alcohol dependence with uncomplicated withdrawal Status: Acute (2) Cocaine abuse, uncomplicated Status: Chronic (3) Nicotine dependence Status: Chronic Qualifiers: Nicotine product type: cigarettes Substance use status: uncomplicated Qualified Code(s): F17.210 - Nicotine dependence, cigarettes, uncomplicated - AMA Did Patient Leave Against Medical Advice: No
[2019-04-17] MEDS ORDERED: chlordiazePOXIDE HCL 10 MG CAPSULE PO SCH (23:00)
== END 2019-04-17 17:13 | disposition home or self-care (01) | DRG 774 ==
LOC: YASAS 14:08 → Y3N 21:17
PROVIDERS: ADMIT Surgery; ATTEND Surgery
PROC: HZ2ZZZZ Detoxification Services for Substance Abuse Treatment (ICD-10-PCS; principal; 2019-04-14)
DX: F10.230 Alcohol dependence with withdrawal, uncomplicated (principal); F14.20 Cocaine dependence, uncomplicated; F17.210 Nicotine dependence, cigarettes, uncomplicated; F31.9 Bipolar disorder, unspecified; F20.9 Schizophrenia, unspecified; R29.898 Other symptoms and signs involving the musculoskeletal system; Z97.8 Presence of other specified devices; Z99.89 Dependence on other enabling machines and devices; Z91.018 Allergy to other foods; Z88.8 Allergy status to other drugs, medicaments and biological substances; S84.80 Injury of other nerves at lower leg level
CPT/HCPCS: 81003